=== PATIENT | male | born 1990 | race Caucasian/White ===

== ENCOUNTER 2023-04-12 01:10 | Emergency (ER) | payer SELFPAY ==
[~2023-04-12] VITALS: Ht 170.2 cm; Wt 81.6 kg
[2023-04-12 01:20] VITALS: BP 132/97; TEMP 98
[2023-04-12] MEDS ORDERED: CYCLOBENZAPRINE 10 MG TABLET PO ONE (03:00)
[2023-04-12] MEDS ORDERED: IBUPROFEN 600 MG TABLET PO ONE (03:00)
[2023-04-12] MEDS ORDERED: CYCLOBENZAPRINE 10 MG TABLET ONE (03:01)
[2023-04-12] MEDS ORDERED: IBUPROFEN 600 MG TABLET ONE (03:01)
[2023-04-12] MEDS ORDERED: CYCL5TAB PO (03:09)
[2023-04-12 03:58] VITALS: O2SAT 96
== END 2023-04-12 04:14 | disposition home or self-care (01) ==
LOC: ER 01:12
DX: M54.6 Pain in thoracic spine (principal); Z60.2 Problems related to living alone